=== PATIENT | female | born 1940 | race Caucasian/White ===

== ENCOUNTER 2022-01-24 22:18 | Emergency (ER) | payer MEDICARE ==
[~2022-01-24] VITALS: Ht 154.9 cm; Wt 80.7 kg
--- NOTE | 2022-01-24 22:30 | NUR ---
Dr Webb at bedside, MSE in progress.
[2022-01-25 00:19] VITALS: BP 142/63
--- NOTE | 2022-01-25 00:19 | NUR ---
Patient discharged to home in stable condition. Written and verbal after care instructions given. Patient verbalizes understanding of instructions. Stressed follow up or return to ER for worsening s/s. pt taken to car via wheelchair and assissted in to car.
== END 2022-01-25 00:20 | disposition home or self-care (01) ==
LOC: ER 22:18
DX: S80.11XA Contusion of right lower leg, initial encounter (principal); M79.89 Other specified soft tissue disorders; W19.XXXA Unspecified fall, initial encounter; Y92.89 Other specified places as the place of occurrence of the external cause; S02.2XXD Fracture of nasal bones, subsequent encounter for fracture with routine healing; W19.XXXD Unspecified fall, subsequent encounter; E78.00 Pure hypercholesterolemia, unspecified
CPT/HCPCS: 73590; 73610; A4663